=== PATIENT | male | born 2000 | race Caucasian/White ===

== ENCOUNTER 2024-05-17 09:01 | Inpatient (IN) | payer MEDICAID, SELFPAY ==
[2024-05-17] VITALS (20 sets, daily range): BP systolic 89–137; BP diastolic 41–81; PULSE 44–85; RESP 15–28; TEMP 36.6–37.2; O2SAT 96–100; BMI 19.0; BMI 18.8
--- NOTE | 2024-05-17 09:30 | XR_ITS ---
Examination: PA lateral chest 2 views TECHNIQUE: Upright PA lateral chest 2 views Exam date and time: May 17, 2024 at 0935 hours Comparison November 05, 2022 INDICATIONS: History pneumothorax 5%, shortness of breath today FINDINGS: Left apical pneumothorax, estimated 30% No shift of the heart or mediastinum to the right Normal heart size IMPRESSION: Left apical pneumothorax estimated 30%
--- NOTE | 2024-05-17 09:53 | PD.EDSOB ---
ED SOB =RME/HPI General Chief Complaint: Shortness of Breath/Dyspnea Stated Complaint: I think my lung collapsed Time Seen by Provider: 05/17/24 09:20 Source: patient Arrival date/time: 05/17/24 09:01 24-year-old male presents emergency department complaints of left-sided chest pain deep deep inspiration. Patient states that he has had a hemothorax in the past and is scared that today he has the same. Denies chest pain, no cough no fever no rhinorrhea. Mode of arrival: ambulatory Related Data Home Medications ?Medication ?Instructions ?Recorded ?Confirmed No Known Home Medications 11/02/22 11/02/22 Allergies Allergy/AdvReac Type Severity Reaction Status Date / Time No Known Allergies Allergy Verified 05/17/24 09:04 Review of Systems Review of Systems Systems Reviewed: All systems reviewed, normal except as documented Narrative Review of Systems: Gen: No fever, no chills, no weight loss EYES: No discharge, no visual changes, no pain HEENT: No ear pain, no congestion, no sore throat PULM: No shortness of breath, no cough, no congestion CV: No chest pain, no dyspnea on exertion, no palpitations GI: No nausea, no vomiting, no diarrhea, no pain, no constipation : No frequency, no urgency, no dysuria Musc/skel: No joint pain, no back pain Skin: No rash Psyc: No hallucinations, no depression Heme/Lymph: No easy bleeding or bruising tendencies Neuro: No weakness, no headache ED Exam Narrative Physical exam: General: Sittiing in Exam table in no acute distress, answering questions appropriately HENT: normocephalic, atraumatic, EOMI, PERRLA, moist mucous membranes Chest: chest wall is nontender Cardiac: regular rate and rhythm, normal S1 and S2, no murmurs, rubs, or gallops, capillary refill ?2 seconds Pulmonary: clear to auscultation bilaterally, no wheezing, crackles, or rhonchi Abdominal: active bowel sounds, soft, nontender, nondistended Neuro: A&OX3, CN II-XII intact, sensation grossly intact bilaterally in UE and LE. Skin: no rashes, no ecchymosis Ext: no lower extremity edema Course Quality Measures none Orders Category Date Time Status XR chest 2V Stat Exams 05/17/24 09:30 Ordered Ibuprofen Tab [Motrin Tab] Med 05/17/24 09:30 Discontinued 800 mg PO X1 ONE Vital Signs Vital signs: Vital Signs Temperature 98.5 F 05/17/24 09:03 Pulse Rate 78 05/17/24 09:03 Respiratory Rate 19 05/17/24 09:03 Blood Pressure 124/62 05/17/24 09:03 Pulse Oximetry (%) 100 05/17/24 09:03 Oxygen Delivery Method Room Air 05/17/24 09:03 Shortness of Breath / Dyspnea Patient data External records reviewed:: [facility] previous records Clinical information provided by:: patient Social determinants that could affect healthcare access:: none Patient has the following chronic illnesses:: History of hemothorax How is presenting disease/condition affected by chronic disease/condition?: no chronic disease Evaluation data The following diagnostics were reviewed and interpreted by me:: radiology exam(s) Lab and/or radiology exams considered but not ordered:: no Medications / Prescriptions Medication administrations:: Medication Administration History Discontinued Medications Ibuprofen (Ibuprofen Tab 400 Mg Tablet) 800 mg PO X1 ONE Stop: 05/17/24 09:31 all medications administered and effective Consultations Consultation(s) initiated? (list below): No Diagnosis Shortness of Breath Differential Diagnosis: community acquired pneumonia and other ( bronchitis, hemothorax,) Most likely diagnosis given after review of the tests above:: costochondritis Admission Indicated Admission indicated?: not indicated Admission Request Was there a request for admission?: No Disposition Plan Disposition Plan: Discharge Discharge Attestation Discharge Attestation: The patient and all family members were given an opportunity to ask questions and understood the discharge instructions. Discharge instructions specifically effects, indications for sooner follow up or return to the emergency department, and the expected course of current diagnosis. Patient condition: Stable Discharge Plan Prescriptions/Referrals Prescriptions/Med Rec: No Action No Known Home Medications Patient/Caregiver Discharge Instructions Print Language: Hungarian
--- NOTE | 2024-05-17 09:57 | PD.EDRME ---
Rapid Medical Screening Exam [facility] Arrival date/time: 05/17/24 09:01 24-year-old male presents emergency department complaints of left-sided chest pain deep deep inspiration. Patient states that he has had a hemothorax in the past and is scared that today he has the same. Denies chest pain, no cough no fever no rhinorrhea. Chief Complaint: Shortness of Breath/Dyspnea Time Seen by Provider: 05/17/24 09:20 Vital signs: Vital Signs Temperature 98.5 F 05/17/24 09:03 Pulse Rate 78 05/17/24 09:03 Respiratory Rate 19 05/17/24 09:03 Blood Pressure 124/62 05/17/24 09:03 Pulse Oximetry (%) 100 05/17/24 09:03 Oxygen Delivery Method Room Air 05/17/24 09:03
[2024-05-17] MEDS: IBUPROFEN TAB 400 MG TABLET 800 MG PO (10:08)
--- NOTE | 2024-05-17 10:18 | EKG_ITS ---
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2000 Requested By: Mau Wakefield Order Number: [id number] Niesha MD: Mau Wakefield Measurements Intervals [place] Rate: 58 P: 77 WV: 135 QRS: -52 QRSD: 118 T: 72 QT: 395 QTc: 390 Interpretive Statements SINUS BRADYCARDIA POSSIBLE LEFT ATRIAL ENLARGEMENT [-0.1mV P WAVE IN V1/V2] INDETERMINATE AXIS INCOMPLETE RIGHT BUNDLE BRANCH BLOCK [90+ ms QRS DURATION, TERMINAL R IN V1/V2, 40+ ms S IN I/aVL/V4/V5/V6] LEFT ANTERIOR FASCICULAR BLOCK [QRS AXIS <= -45, QR IN I, RS IN II] MODERATE ST DEPRESSION [0.05+ mV ST DEPRESSION] Compared to ECG 11/02/2022 11:40:23 Indeterminate axis now present ST (T wave) deviation still present /store/S0/[id number]/ecg/[id number].pdf
--- NOTE | 2024-05-17 10:36 | XR_ITS ---
Examination: CT-guided percutaneous chest tube placement left hemithorax CT chest without intravenous contrast Date and time of procedure: April 16, 2024 1416 hours INDICATIONS: Shortness of breath this week, 30% left apical pneumothorax on chest x-ray today Informed consent provided. A timeout was completed verifying correct patient, procedure, site and positioning. Technique: Axial 3 mm sections were obtained for localization of the left apical pneumothorax. Appropriate area is marked. The patient's site was prepped and draped in sterile fashion Maximal sterile barrier technique utilized, including hand hygiene Local anesthesia was obtained with 1% lidocaine. Low dose protocols were performed. One or more of the following dose reduction techniques were used; automated exposure control, adjustment of the mA and/or KV according to patient size, use of iterative reconstruction technique. Utilizing CT fluoroscopic guidance successful placement 5 Algerian catheter in the left apical pneumothorax 0.35 wire guide is introduced through the catheter followed by dilators and 8 Algerian chest tube in proper position under fluoroscopic guidance Patient appears in stable condition during this procedure. At completion of the procedure, the patient is in satisfactory condition. Estimated blood loss 2 cc Impression: Successful CT-guided percutaneous placement chest tube left hemithorax
[2024-05-17 10:43] LABS: Basophils % (Auto) 0 % (0-2.5); Eosinophils % (Auto) 0 % (0-10); Hematocrit 46.2 % (41.0-53.0); Hemoglobin 16.3 g/dL (13.5-16.0); Immature Granulocytes % (Auto) 0 % (0-0); Immature Granulocytes Auto 0.03 Thou/mm3 (0.00-0.00); Lymphocytes # (Auto) 0.6 Thou/mm3 (1.0-4.8); Lymphocytes % (Auto) 5 % (10-50); Mean Corpuscular HGB Conc 35.3 g/dl (31.0-37.0); Mean Corpuscular Hemoglobin 30.4 pg (25.0-35.0); Mean Corpuscular Volume 86 fL (80-100); Monocytes # (Auto) 0.6 Thou/mm3 (0.0-0.8); Monocytes % (Auto) 5 % (0-12); Neutrophils # (Auto) 11.1 Thou/mm3 (1.8-7.7); Neutrophils % (Auto) 90 % (37-80); Nucleated Red Blood Cell % 0 /100 WBC (0); Platelet Count 253 Thou/mm3 (140-440); RDW Standard Deviation 38.6 fL (35.1-43.9); Red Blood Count 5.36 Miln/mm3 (4.50-5.90); White Blood Count 12.4 Thou/mm3 (3.8-10.6)
[2024-05-17 10:57] LABS: INR 1.1 (0.9-1.3); Prothrombin Time 12.2 Seconds (9.0-12.2)
[2024-05-17 11:01] LABS: Alanine Aminotransferase 13 U/L (10-49); Albumin, Serum 5.6 gm/dL (3.5-5.0); Albumin/Globulin Ratio 2.2 (1.2-2.2); Alkaline Phosphatase 64 U/L (46-116); Anion Gap 10 (7-16); Aspartate Amino Transferase 20 U/L (0-34); BUN/Creatinine Ratio 19 Ratio (12-20); Bilirubin,Total 1.7 mg/dL (0.3-1.2); Blood Urea Nitrogen 19 mg/dL (9-23); Calcium 10.7 mg/dL (8.3-10.6); Calcium (Corrected) 10.7 mg/dL (8.5-10.1); Carbon Dioxide 25.2 mMol/L (20.0-31.0); Chloride 103 mMol/L (98-107); Estimated Creatinine Clearance 100.5 mL/min (>60); Globulin 2.6 gm/dL (2.3-3.5); Glucose 94 mg/dL (74-106); Osmolality,Calculated 277 (275-295); Sodium 138 mMol/L (136-145); Total Protein 8.2 gm/dL (5.7-8.2); eGFR > 60 See Note
--- NOTE | 2024-05-17 13:55 | PC.NURSE ---
pt taken to IR.
--- NOTE | 2024-05-17 14:23 | EDNOTE_ITS ---
ED SOB =RME/HPI General Chief Complaint: Shortness of Breath/Dyspnea Stated Complaint: I think my lung collapsed Time Seen by Provider: 05/17/24 09:20 Arrival date/time: 05/17/24 09:01 RME / HPI RME / HPI Narrative: 05/17/24 09:01 24-year-old male presents emergency department complaints of left-sided chest pain deep deep inspiration. Patient states that he has had a hemothorax in the past and is scared that today he has the same. Denies chest pain, no cough no fever no rhinorrhea. DR. SHALOM SPENCER ED EVALUATION 24 year old male with history of spontaneous pneumothorax in 2019 and 2022 presents to the ED for I think my lung collapsed today. Reports left sided chest pain worse with deep inspiration and feeling short of breath. Denies fevers, chills, cough, abdominal pain, n/v, or urinary symptoms Social hx: +Marijuana Related Data Home Medications ?Medication ?Instructions ?Recorded ?Confirmed No Known Home Medications 11/02/22 11/02/22 Allergies Allergy/AdvReac Type Severity Reaction Status Date / Time No Known Allergies Allergy Verified 05/17/24 09:04 Review of Systems Review of Systems Narrative Review of Systems: GEN: No fever, no chills, no weight loss EYES: No discharge, no visual changes, no pain HEENT: No ear pain, no congestion, no sore throat PULM: + shortness of breath, no cough CV: No chest pain, no palpitations GI: No nausea, no vomiting, no diarrhea, no pain, no constipation : No frequency, no urgency and no dysuria MUSC/SKEL No joint pain, no back pain SKIN: No rash PSYCH: No hallucinations, no depression HEME/LYMPH: No easy bleeding or bruising tendencies NEURO: No weakness, no headache Past Medical History Past Medical History NEUROLOGIC: Negative Neurological Disorders CARDIAC: Negative Cardiac Disorders GASTROINTESTINAL: Negative Gastrointestinal Disorders GENITOURINARY: Negative Genitourinary Disorders or Renal Disease MUSCULOSKELETAL: Negative Musculoskeletal Disorders Family History FAMILY HISTORY: Negative Family Cardiac Disorders Surgical History SURGICAL: Negative Cardiac Surgery, Endocrine Surgery, Abdominal Surgery, Nephrectomy, Joint Replacement or Neurologic Surgery Social History SMOKING STATUS: Current some day smoker SUBSTANCE USE: marijuana ED Exam Narrative Physical exam: GENERAL APPEARANCE: Well hydrated, well nourished, in no acute distress. VITALS: All vitals were reviewed and the pulse ox is 97% on room air which is normal according to my interpretation. HEENT: Normocephalic, atramatic, EOMI, EACs are patent. There is no bulge or retraction. Throat without erythema or exudate. Moist oromucosa. No jaundice NECK: Supple, no JVD or bruits. CARDIOVASCULAR: Heart regular without S3-S4 or murmur. No rubs or gallops. LUNGS/CHEST: Clear to auscultation bilaterally. No rales, rhonchi, or wheezing. Normal inspection. ABDOMEN: Soft, nontender, with normal bowel sounds. No pulsatile masses. No rebound, rigidity, or guarding. No incarcerated hernia. Normal inspection and palpation. EXTREMITIES: Normal inspection and palpation. No edema, clubbing, or cyanosis. Intact CSM SKIN: Warm and dry without rashes. Normal inspection. MUSCULOSKELETAL: Normal inspection. No gross deformity, full ROM all extremities NEURO: Alert and oriented x3. Cranial nerves II through XII grossly intact. There are no other motor or sensory deficits noted. PSYCHIATRIC: Normal mood and affect. No psychosis. Course Course Course Narrative: chest xray ordered to help determine etiology of chest pain and shortness of breath. Quality Measures none Orders Category Date Time Status [employer] Systems Adminstrator Q4H START 00 Care 05/17/24 10:18 Active EKG (ED ONLY) *Do not use* NOW Care 05/17/24 10:20 Completed Saline [Insert IV] NOW Care 05/17/24 10:[address] chest tube placement Stat Exams 05/17/24 10:36 Completed EKG (ED Only) Stat Exams 05/17/24 10:18 Draft XR chest 2V Stat Exams 05/17/24 09:30 Completed CBC Stat Lab 05/17/24 10:35 Completed CMP [Comprehensive Metabolic Panel] Stat Lab 05/17/24 10:35 Completed PT [Prothrombin Time with INR] Stat Lab 05/17/24 10:35 Completed PTT [Partial Thromboplastin Time] Stat Lab 05/17/24 10:35 Completed Etomidate Inj [Amidate Inj] Med 05/17/24 10:18 Discontinued 10 mg IVP X1 ONE Ibuprofen Tab [Motrin Tab] Med 05/17/24 09:30 Discontinued 800 mg PO X1 ONE Lidocaine 1% Pf 30 ml [Xylocaine 1% Pf 30 ml] Med 05/17/24 13:52 Discontinued 30 ml .ROUTE .STK-MED ONE Lidocaine 1% Pf 30 ml [Xylocaine 1% Pf 30 ml] Med 05/17/24 14:42 Discontinued 30 ml .ROUTE .STK-MED ONE Lidocaine 1% Pf 30 ml [Xylocaine 1% Pf 30 ml] Med 05/17/24 14:16 Discontinued 7 ml INFL X1 ONE Lidocaine 1% W/Epi 1:100K 20Ml [Xylocaine 1% w/Epi 1: Med 05/17/24 10:18 Discontinued 100K 20 ml] 20 ml INFL X1 ONE Midazolam Inj [Versed Inj] Med 05/17/24 10:18 Discontinued 6 mg IV X1 ONE NALOXONE INJ (Vial) [Narcan Inj (Vial)] Med 05/17/24 13:53 Discontinued 0.4 mg .ROUTE .STK-MED ONE Sodium Chloride 0.9% 500 ml [Ns] 500 ml Med 05/17/24 14:55 Discontinued IV 999 mls/hr fentaNYL INJ [Sublimaze Inj] Med 05/17/24 14:16 Discontinued 125 mcg IVP X1 ONE fentaNYL INJ [Sublimaze Inj] Med 05/17/24 13:52 Discontinued 200 mcg .ROUTE .STK-MED ONE fentaNYL INJ [Sublimaze Inj] Med 05/17/24 10:18 Discontinued 60 mcg IVP X1 STA Vital Signs Vital signs: Vital Signs Temperature 98.5 F 05/17/24 09:03 Pulse Rate 78 05/17/24 09:03 Respiratory Rate 19 05/17/24 09:03 Blood Pressure 124/62 05/17/24 09:03 Pulse Oximetry (%) 100 05/17/24 09:03 Oxygen Delivery Method Room Air 05/17/24 09:03 Shortness of Breath / Dyspnea MDM Narrative MDM Narrative:: Agueda Villanueva am scribing for and in the presence of Dr. Wakefield. Portable chest x-ray interpreted by me: Evidence of 3% apical pneumothorax seen on the left. On the right is clear and normal. Heart is normal. With normal mediastinum. Normal bones. No fracture ribs. No foreign body. The patient confirmed that he did not have any trauma or injury. He has had spontaneous pneumothorax at least twice before. 4 PM, the patient has come back from the interventional radiology office for CT- guided chest tube inserted in the left chest. O2 saturation is 100% in room air. Patient is alert awake oriented x 4 GCS of 15. Blood pressure is perfectly normal. He is happy smiling and talking. No respiratory distress. I spoke to and discussed with , resident of , hospitalist on- call. He agreed to admit the patient for further evaluation and treatment. Thank you Critical care time is approximately 35 minutes excluding any procedure. The high probability of sudden, clinically significant deterioration in the patient?s condition required the highest level of my preparedness to intervene urgently. The services I provided to this patient were to treat and/or prevent clinically significant deterioration. Services included the following: chart data review, reviewing nursing notes and/or old charts, documentation time, executive consultant collaboration regarding findings and treatment options, medication orders and management, direct patient care, vital sign assessments and ordering, interpreting and reviewing diagnostic studies and lab tests. Aggregate critical care time includes only time during which I was engaged in work directly related to the patient?s care, as described above, whether at bedside or elsewhere in the Emergency Department. It did not include time spent performing other reported procedures or the services of residents, students, naty ses or physician assistants. Patient data External records reviewed:: [facility] previous records (I reviewed previous admission for pneumothorax in 2018 and 2022 ) Clinical information provided by:: patient Social determinants that could affect healthcare access:: substance use (Marijuana ) Patient has the following chronic illnesses:: spontaneous pneumothorax in 2018 and 2022 How is presenting disease/condition affected by chronic disease/condition?: exacerbated by Evaluation data The following diagnostics were reviewed and interpreted by me:: lab results, radiology exam(s) and EKG tracing(s) Lab and/or radiology exams considered but not ordered:: None Interpretation Summary: Ordering Physician: Hoa Johnston Date of Service: 05/17/24 Procedure(s): XR chest 2V Accession Number(s): [id number] cc: George Thompson MD; Hoa Johnston~ Examination: PA lateral chest 2 views TECHNIQUE: Upright PA lateral chest 2 views Exam date and time: May 17, 2024 at 0935 hours Comparison November 05, 2022 INDICATIONS: History pneumothorax 5%, shortness of breath today FINDINGS: Left apical pneumothorax, estimated 30% No shift of the heart or mediastinum to the right Normal heart size IMPRESSION: Left apical pneumothorax estimated 30% Dictated By: George Thompson MD Signed By: <Electronically signed by George Thompson MD in OV> 05/17/24 0952 Ordering Physician: Mau Wakefield MD Date of Service: 05/17/24 Procedure(s): CT chest tube placement Accession Number(s): [id number] cc: George Thompson MD; NO PRIMARY/FAMILY,PHYSICIAN; Mau Wakefield MD~ Examination: CT-guided percutaneous chest tube placement left hemithorax CT chest without intravenous contrast Date and time of procedure: April 16, 2024 1416 hours INDICATIONS: Shortness of breath this week, 30% left apical pneumothorax on chest x-ray today Informed consent provided. A timeout was completed verifying correct patient, procedure, site and positioning. Technique: Axial 3 mm sections were obtained for localization of the left apical pneumothorax. Appropriate area is marked. The patient's site was prepped and draped in sterile fashion Maximal sterile barrier technique utilized, including hand hygiene Local anesthesia was obtained with 1% lidocaine. Low dose protocols were performed. One or more of the following dose reduction techniques were used; automated exposure control, adjustment of the mA and/or KV according to patient size, use of iterative reconstruction technique. Utilizing CT fluoroscopic guidance successful placement 5 Belarusian catheter in the left apical pneumothorax 0.35 wire guide is introduced through the catheter followed by dilators and 8 Belarusian chest tube in proper position under fluoroscopic guidance Patient appears in stable condition during this procedure. At completion of the procedure, the patient is in satisfactory condition. Estimated blood loss 2 cc Impression: Successful CT-guided percutaneous placement chest tube left hemithorax Dictated By: George Thompson MD Signed By: <Electronically signed by George Thompson MD in OV> 05/17/24 1548 Medications / Prescriptions Medications or Prescriptions considered but not ordered:: None Medication administrations:: Medication Administration History Discontinued Medications Etomidate (Etomidate Inj 2 Mg/Ml Vial 10 Ml) 10 mg IVP X1 ONE Stop: 05/17/24 10:19 Fentanyl Citrate (Fentanyl Cit Inj 50 Mcg/Ml Amp 2ml) 60 mcg IVP X1 STA Stop: 05/17/24 10:19 Fentanyl Citrate (Fentanyl Cit Inj 50 Mcg/Ml Amp 2ml) Confirm Administered Dose 200 mcg .ROUTE .STK-MED ONE Stop: 05/17/24 13:53 Last Admin: 05/17/24 15:29 Dose: Not Given Documented By: CU Non-Admin Reason: Override Medication Fentanyl Citrate (Fentanyl Cit Inj 50 Mcg/Ml Amp 2ml) 125 mcg IVP X1 ONE Stop: 05/17/24 14:17 Last Admin: 05/17/24 14:43 Dose: 125 mcg Documented By: BROWN Sodium Chloride (Ns) 500 mls @ 999 mls/hr IV .Q31M ONE Stop: 05/17/24 15:25 Last Infusion: 05/17/24 15:08 Dose: Infused Documented By: Admin: 05/17/24 14:55 Dose: 999 mls/hr Documented By: BROWN Ibuprofen (Ibuprofen Tab 400 Mg Tablet) 800 mg PO X1 ONE Stop: 05/17/24 09:31 Last Admin: 05/17/24 10:08 Dose: 800 mg Documented By: KARLEY Lidocaine HCl (Lidocaine Inj Pf 1% 30 Ml Vial) Confirm Administered Dose 30 ml .ROUTE .STK-MED ONE Stop: 05/17/24 13:53 Last Admin: 05/17/24 15:29 Dose: Not Given Documented By: CU Non-Admin Reason: Override Medication Lidocaine HCl (Lidocaine Inj Pf 1% 30 Ml Vial) Confirm Administered Dose 30 ml .ROUTE .STK-MED ONE Stop: 05/17/24 14:43 Last Admin: 05/17/24 15:32 Dose: Not Given Documented By: CU Non-Admin Reason: Override Medication Lidocaine HCl (Lidocaine Inj Pf 1% 30 Ml Vial) 7 ml INFL X1 ONE Stop: 05/17/24 14:17 Last Admin: 05/17/24 14:51 Dose: 7 ml Documented By: BROWN Comments: to sterile field administered by dr pratt Lidocaine/Epinephrine (Lidocaine 1% W/Epi 1:100k 20 Ml Vial) 20 ml INFL X1 ONE Stop: 05/17/24 10:19 Midazolam HCl (Midazolam Inj 1 Mg/Ml Vial 2 Ml) 6 mg IV X1 ONE Stop: 05/17/24 10:19 Naloxone HCl (Naloxone Inj 0.4 Mg/Ml Vial) Confirm Administered Dose 0.4 mg .ROUTE .STK-MED ONE Stop: 05/17/24 13:54 Last Admin: 05/17/24 15:29 Dose: Not Given Documented By: CU Non-Admin Reason: Override Medication See above Consultations Consultation(s) initiated? (list below): Yes Consultation #1 (Physician, Specialty, Details): I spoke with IR Dr. Thompson Diagnosis Shortness of Breath Differential Diagnosis: community acquired pneumonia and other (Pneumothorax, viral illness) Most likely diagnosis given after review of the tests above:: Left pneumothorax 30% Chest tube placement Admission Indicated Admission indicated?: indicated Admission Request Was there a request for admission?: Yes Admission Attestation Admission request attestation: Discussed case with [] from Hospitalist service regarding admission. Discussed patients ED course, exam findings, labs, and radiology results. The Hospitalist [agrees,declines] to accept the patient for admission. Disposition Plan Disposition Plan: Admit Critical Care Time Critical Care Time Critical Care Time: Yes Total Critical Care Time (min.): 35 Attestation: The high probability of sudden, clinically significant deterioration in the patient's condition required the highest level of my preparedness to intervene urgently. The services I provided to this patient were to treat and/or prevent clinically significant deterioration. Services included the following: chart data review, reviewing nursing notes and/or old charts, documentation time, executive consultant collaboration regarding findings and treatment options, medication orders and management, direct patient care, vital sign assessments and ordering, interpreting and reviewing diagnostic studies and lab tests. Aggregate critical care time includes only time during which I was engaged in work directly related to the patient's care, as described above, whether at bedside or elsewhere in the Emergency Department. It did not include time spent performing other reported procedures or the services of residents, students, nurses or physician assistants. Discharge Plan Plan Patient Disposition: Admit Acute Care w/in Hospital Disposition Comment: Stable for admit Prescriptions/Referrals Prescriptions/Med Rec: No Action No Known Home Medications Referrals: No Primary/Family,Physician [Primary Care Provider] - In 1 week Problem List Clinical Impression: Pneumothorax on left Patient/Caregiver Discharge Instructions Print Language: Niuean Stand Alone Forms: [employer] Patient Portal Info Letter
[2024-05-17] MEDS: fentaNYL CIT INJ 50 mCg/ML AMP 2ML 125 MCG IVP (14:43)
[2024-05-17] MEDS: LIDOCAINE INJ PF 1% 30 ML VIAL 7 ML INFL (14:51)
[2024-05-17] MEDS: SODIUM CHLORIDE 0.9% 500 ML 500 ML 999 ML IV (14:55)
--- NOTE | 2024-05-17 15:07 | PC.NURSE ---
Received report from IR. Chest tube placed on pt and pt had a vaso vagal response but is currently 109/75, 56, 23, on 3 L NC , 98%
--- NOTE | 2024-05-17 16:21 | PC.NURSE ---
1508 patient had chest tube insertion left hemithorax, report given to Jing MCELROY, patient transferred back to ER room 3, pleur vac set up in room to low/medium suction
--- NOTE | 2024-05-17 16:42 | EKG_ITS ---
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
--- NOTE | 2024-05-17 16:43 | ESHP_ITS ---
<Statement entered by Jackelin Hoyt MD - 05/23/24 17:31> Attending attestation: I reviewed above note and agree with findings and plans. I have also personally examined the patient with medicine team and went over assessment and plan with medical team including supply chain intern and resident physician. Documentation for date of: 05/17/24 HPI History of Present Illness Chief complaint: Chest pain History of present illness: Patient is 24 years old male with past medical history significant of marijuana use disorder presented to the ED complaining of chest pain started yesterday around noon. Patient reported that he was resting on the couch when he suddenly developed severe chest pain over the left chest. Patient has history of prior spontaneous pneumothorax in 2022 and 2018 and reported that symptoms were similar. Today his condition has failed to improve and he came to the emergency room. He has never been diagnosed with any congenital genetic conditions. He reported that his father is 6.8 feet tall and his half brother from father side has deformed chest since . He denies any fever, chills, palpitations or diaphoresis. Patient denied any recent physical activity and does not do any sports. On admission his blood pressure 124/62, pulse 78, respirations 19, temperature 98.5 ?F, oxygen saturation 100% on room air. Labs showed WBCs 12.4, hemoglobin 16.3, corrected calcium 10.7, total bilirubin 1.7, albumin 5.6. Chest x-ray showed left apical pneumothorax approximately 70%. EKG showed sinus bradycardia with nonspecific ST segment changes. Chest tube was placed. Patient was admitted for further management. PMH: Marijuana use disorder, prior history of spontaneous pneumothorax. PSH: Chest tube placement. SH: Smokes marijuana daily, denies smoking tobacco or using illicit drugs. Denies drinking alcohol. FH: All male siblings from father side are tall, his half brother from father side has deformed chest. Allergies: NKA. Medications: none. Review of Systems Review of Systems Narrative Review of Systems: General: Denies weight loss, fever and chills. HEENT: Denies changes in vision and hearing. Resp: Denies SOB, cough and wheezing. CVS: + chest pain. Denies palpitations. GI: Denies abdominal pain, nausea, vomiting and diarrhea. : Denies dysuria and urinary frequency. MSK: Denies myalgia and joint pain. Denies rash and pruritus. Neuro: Denies headache and syncope. Psych: Denies recent changes in mood. Denies anxiety and depression. Exam Vital Signs Temp Pulse Resp BP Pulse Ox O2 Del Method O2 Flow Rate 98.5 F 60 20 136/73 H 98 Room Air 3 05/17/24 16:32 05/17/24 16:32 05/17/24 16:32 05/17/24 16:32 05/17/24 16:32 05/17/24 16:32 05/17/24 15:05 Narrative Exam Gen: Well-developed and well-nourished thin male. HEENT: NCAT, PERRLA, EOMI, MMM, anicteric conjunctivae. CVS: normal S1 and S2. RRR. No M/R/G. Resp: decreased breath sound over left apex. No rhonchi, rales, crackles or wheezing. Abd: soft, non-tender, non-distended. BS+ in all 4 quadrants. MSK: Good ROM in BUE & BLE. No edema or rash. Neuro: CN II-XII grossly intact. Strength 5/5 in BUE & BLE. Alert and oriented x3. Psych: appropriate mood and affect. Results: Labs 05/17/24 10:35 05/17/24 10:35 Labs: Short CBC 05/17/24 Range/Units 10:35 WBC 12.4 H (3.8-10.6) Thou/mm3 Hgb 16.3 H (13.5-16.0) g/dL Hct 46.2 (41.0-53.0) % Plt Count 253 (140-440) Thou/mm3 [facility] 05/17/24 10:35 Sodium 138 Potassium 4.0 Chloride 103 Carbon Dioxide 25.2 BUN 19 Creatinine 1.0 Glucose 94 Calcium 10.7 H Liver Function 05/17/24 Range/Units 10:35 Total Bilirubin 1.7 H (0.3-1.2) mg/dL AST 20 (0-34) U/L ALT 13 (10-49) U/L Alkaline Phosphatase 64 (46-116) U/L Albumin 5.6 H (3.5-5.0) gm/dL Quality Measures Quality Measures none Medications Home Medications and Allergies Home Medications ?Medication ?Instructions ?Recorded ?Confirmed ?Type No Known Home Medications 11/02/22 11/02/22 History Allergies Allergy/AdvReac Type Severity Reaction Status Date / Time No Known Allergies Allergy Verified 05/17/24 09:04 Visit Medications Acetaminophen (Acetaminophen 325 Mg Tablet) 650 mg PO Q6H PRN PRN Reason: PAIN SCALE 1-3 (mild Stop: 06/16/24 16:39 Hydrocodone Bitart/Acetaminophen (Hydrocodone/Apap 5/325 Tablet) 1 tab PO Q4HR PRN PRN Reason: PAIN SCALE 4-6 (Moderate Stop: 05/22/24 16:39 Discontinued Medications Etomidate (Etomidate Inj 2 Mg/Ml Vial 10 Ml) 10 mg IVP X1 ONE Stop: 05/17/24 10:19 Last Admin: 05/17/24 16:04 Dose: Not Given Fentanyl Citrate (Fentanyl Cit Inj 50 Mcg/Ml Amp 2ml) 60 mcg IVP X1 STA Stop: 05/17/24 10:19 Last Admin: 05/17/24 16:04 Dose: Not Given Fentanyl Citrate (Fentanyl Cit Inj 50 Mcg/Ml Amp 2ml) 125 mcg IVP X1 ONE Stop: 05/17/24 14:17 Last Admin: 05/17/24 14:43 Dose: 125 mcg Sodium Chloride (Ns) 500 mls @ 999 mls/hr IV .Q31M ONE Stop: 05/17/24 15:25 Last Infusion: 05/17/24 15:08 Dose: Infused Ibuprofen (Ibuprofen Tab 400 Mg Tablet) 800 mg PO X1 ONE Stop: 05/17/24 09:31 Last Admin: 05/17/24 10:08 Dose: 800 mg Lidocaine HCl (Lidocaine Inj Pf 1% 30 Ml Vial) 7 ml INFL X1 ONE Stop: 05/17/24 14:17 Last Admin: 05/17/24 14:51 Dose: 7 ml Lidocaine/Epinephrine (Lidocaine 1% W/Epi 1:100k 20 Ml Vial) 20 ml INFL X1 ONE Stop: 05/17/24 10:19 Last Admin: 05/17/24 16:04 Dose: Not Given Midazolam HCl (Midazolam Inj 1 Mg/Ml Vial 2 Ml) 6 mg IV X1 ONE Stop: 05/17/24 10:19 Last Admin: 05/17/24 16:05 Dose: Not Given Assessment & Plan Plan Patient is 24 years old male with past medical history significant of marijuana use disorder presented to the ED complaining of chest pain started yesterday around noon. Patient reported that he was resting on the couch when he suddenly developed severe chest pain over the left chest. Today his condition has failed to improve and he came to the emergency room. Chest x-ray showed left apical pneumothorax approximately 70%. Chest tube was placed. Patient was admitted for further management. #Spontaneous pneumothorax, recurrent. -Patient has history of prior spontaneous pneumothorax in 2022 and 2018. -Chest x-ray showed left apical pneumothorax approximately 70%. Chest tube was placed. Plan: -Chest x-ray scheduled for 7 AM tomorrow. -Will continue monitoring chest tube and output. -Pain control with acetaminophen and [place]. #Hemoconcentration. #Leukocytosis. #Hypercalcemia. #Hyperbilirubinemia. -Labs showed WBCs 12.4, hemoglobin 16.3, corrected calcium 10.7, total bilirubin 1.7, albumin 5.6. His bilirubin was previously noted to be elevated. -Patient denies any fever, chills, abdominal pain, nausea or vomiting. He reported decreased oral intake since yesterday. Possibly hemoconcentration from dehydration. Plan: -Started on NS at 70 cc/h. -Follow-up labs in the morning. FEN: regular. DVT prophylaxis: none. GI prophylaxis: none. Dispo: medsurg. CODE STATUS: full code. Plan of care discussed with attending Dr. Hoyt. Dwight Hughes MD, PGY 2. Disclaimer: This note was dictated by speech recognition. Minor errors in special education curriculum specialist may be present due to voice recognition software.
--- NOTE | 2024-05-17 16:45 | XR_ITS ---
Examination: AP chest single view Technique one AP portable upright chest single view Exam date and time: May 17, 2024 0454 hours INDICATIONS: Left apical pneumothorax, post chest tube placement today FINDINGS: Interval insertion left chest tube with decrease left pneumothorax, currently estimated 10% Normal heart size IMPRESSION: Interval insertion left chest tube with decrease in left pneumothorax
--- NOTE | 2024-05-17 16:46 | PC.NURSE ---
consulted Dr maxwell regarding chest xray order post chest tube insertion, new order placed for stat chest xray at this time. [facility] ER nurse made aware.
[2024-05-17] MEDS: SODIUM CHLORIDE 0.9% 1000 ML 1,000 ML 70 ML IV (17:08)
--- NOTE | 2024-05-17 19:18 | PC.NURSE ---
Assumed care of pt. Pt is A&O x4, GCS 15, displaying no signs of distress at this time. Pt endorsing pain level 6/10 but declining pain meds at this time. Vitals updated. Bed locked in lowest position, call light within reach.
[2024-05-17] MEDS: HYDROcodone/APAP 5/325 TABLET 1 TAB PO (20:08)
[2024-05-18] VITALS (8 sets, daily range): BP systolic 112–134; BP diastolic 70–79; PULSE 44–53; RESP 15–100; TEMP 36.4–36.8; O2SAT 96–100
[2024-05-18 06:31] LABS: Basophils % (Auto) 0 % (0-2.5); Eosinophils % (Auto) 0 % (0-10); Hematocrit 40.6 % (41.0-53.0); Hemoglobin 14.3 g/dL (13.5-16.0); Immature Granulocytes % (Auto) 0 % (0-0); Immature Granulocytes Auto 0.01 Thou/mm3 (0.00-0.00); Lymphocytes # (Auto) 1.1 Thou/mm3 (1.0-4.8); Lymphocytes % (Auto) 17 % (10-50); Mean Corpuscular HGB Conc 35.2 g/dl (31.0-37.0); Mean Corpuscular Hemoglobin 30.7 pg (25.0-35.0); Mean Corpuscular Volume 87 fL (80-100); Monocytes # (Auto) 0.7 Thou/mm3 (0.0-0.8); Monocytes % (Auto) 10 % (0-12); Neutrophils # (Auto) 4.8 Thou/mm3 (1.8-7.7); Neutrophils % (Auto) 73 % (37-80); Nucleated Red Blood Cell % 0 /100 WBC (0); Platelet Count 199 Thou/mm3 (140-440); RDW Standard Deviation 39.4 fL (35.1-43.9); Red Blood Count 4.66 Miln/mm3 (4.50-5.90); White Blood Count 6.7 Thou/mm3 (3.8-10.6)
--- NOTE | 2024-05-18 07:00 | XR_ITS ---
Examination: AP chest single view Technique one AP portable upright chest single view Exam date and time: May 18, 2024 at 0725 hrs. Indications: History left pneumothorax yesterday post chest tube placement Findings: Left chest tube satisfactory position Small left apical pneumothorax compared to the original chest film May 17, 2024 0935 hrs., Left apical pneumothorax estimated 10% Normal heart size Impression: Left chest tube satisfactory position Left apical pneumothorax 10%, it the Pleur-evac suction is low medium suggest changing the suction to medium
[2024-05-18 07:01] LABS: Anion Gap 3 (7-16); BUN/Creatinine Ratio 14 Ratio (12-20); Blood Urea Nitrogen 13 mg/dL (9-23); Calcium 9.5 mg/dL (8.3-10.6); Carbon Dioxide 26.7 mMol/L (20.0-31.0); Chloride 107 mMol/L (98-107); Creatinine (Component) 0.9 mg/dL (0.6-1.3); Estimated Creatinine Clearance 110.9 mL/min (>60); Glucose 86 mg/dL (74-106); Osmolality,Calculated 272 (275-295); Potassium 3.8 mMol/L (3.4-5.1); Sodium 137 mMol/L (136-145); eGFR > 60 See Note
[2024-05-18] MEDS: HYDROcodone/APAP 5/325 TABLET 1 TAB PO ×3 (11:27→21:24)
--- NOTE | 2024-05-18 11:40 | PC.SS ---
Ge Muro is a 24 Year old male admitted for chest pain. SS met with patient at bedside to discuss discharge plan. Patient reports he lives at home with his fiance. Patient reports his surrogate decision maker is his mother, Jamarcus Cain [phone]. Patient is able to complete all ADL's independently. Patient does not have a PCP. Pharmacy of choice is [facility] [place]. When patient is medically cleared he will return home. Family will provide transportation. Next of Kin: mother, Jamarcus Cain Discharge plan: home
--- NOTE | 2024-05-18 13:21 | PD.SURCONS ---
HPI Consult details Consult date: 05/18/24 Reason for consultation narrative: Chest tube management History of present illness: 24-year-old male presenting with spontaneous left pneumothorax. He underwent placement of chest tube with improvement of his pneumothorax. I was asked to assist in management of chest tube. Patient has had 2 prior episodes of spontaneous pneumothorax, both times were managed with chest tube placement. He denies history of coughing, sneezing, chest pain, hemoptysis or hematemesis. Review of Systems Constitutional Constitutional: Denies chills and Denies fever(s) Cardiovascular Cardiovascular: Denies chest pain Respiratory Respiratory: Denies cough Gastrointestinal Gastrointestinal: Denies abdominal pain Hematologic/Lymphatic Hematologic/Lymphatic: Denies easy bleeding and Denies easy bruising Past Medical History Surgical History OTHER SURGICAL HX: No surgeries in the past Social History SMOKING STATUS: Never smoker SUBSTANCE USE: marijuana ALCOHOL: Current Meds Home Medications and Allergies Home Medications ?Medication ?Instructions ?Recorded ?Confirmed ?Type No Known Home Medications 11/02/22 05/17/24 History Allergies Allergy/AdvReac Type Severity Reaction Status Date / Time No Known Allergies Allergy Verified 05/17/24 09:04 Exam Vital Signs Temp Pulse Resp BP Pulse Ox O2 Del Method O2 Flow Rate 98.2 F 51 L 17 122/77 99 Room Air 3 05/18/24 12:00 05/18/24 12:00 05/18/24 12:00 05/18/24 12:00 05/18/24 12:00 05/18/24 12:00 05/18/24 04:00 Constitutional Constitutional: no acute distress Routine Chest/Breast/Axilla Exam Comments: Left chest tube in place and intact. He has minimal air leak Assessment & Plan Problem List (1) Pneumothorax on left: Status: Acute Plan Keep chest tube to suction. Repeat daily morning x-rays
--- NOTE | 2024-05-18 16:18 | PC.NURSE ---
PER PT MD IN AT 1400 TO ADJUST SUCTION TO CHEST TUBE. SUCTION IS SET AT LOW 50 mmHg. NO DISTRESS NOTES. MOTHER AT BEDSIDE.
--- NOTE | 2024-05-18 16:26 | ESPR_ITS ---
<Statement entered by Jackelin Hoyt MD - 05/23/24 17:32> Attending attestation: I reviewed above note and agree with findings and plans. I have also personally examined the patient with medicine team and went over assessment and plan with medical team including manager internal and resident physician. Documentation for date of: 05/18/24 Subjective Subjective Interval history: Overnight events, lab/imaging results, and notes reviewed. Patient examined bedside, reports feeling well without any complaints. CXR from this morning reveals Left apical pneumothorax now at 10% from 30% yesterday. Will consult general surgeon Dr. Fernandez for chest tube management, we appreciate recommendations. Exam Vital Signs Temp Pulse Resp BP Pulse Ox O2 Del Method O2 Flow Rate 98.2 F 51 L 17 122/77 99 Room Air 3 05/18/24 12:00 05/18/24 12:00 05/18/24 12:00 05/18/24 12:00 05/18/24 12:00 05/18/24 12:00 05/18/24 04:00 Narrative Exam General: AOx3, cooperative, in no acute distress HEENT: Atraumatic/normocephalic, GIAN, neck supple without masses Heart: RRR, S1 and S2 without clicks or murmurs Lungs: Clear on auscultation bilaterally, no difficulty breathing, chest tube in place Abdomen: Soft, nontender. Skin: Intact, no cyanosis or edema noted. Peripheral pulses palpable Neuro: No focal neurological deficits noted Objective Labs 05/18/24 05:35 05/18/24 05:35 Labs: Laboratory Results - last 24 hr 05/18/24 05:35 WBC 6.7 D RBC 4.66 Hgb 14.3 D Hct 40.6 L MCV 87 MCH 30.7 MCHC 35.2 RDW Std Deviation 39.4 Plt Count 199 D Neut % (Auto) 73 Lymph % (Auto) 17 [place] % (Auto) 10 Eos % (Auto) 0 Baso % (Auto) 0 Neut # (Auto) 4.8 Lymph # (Auto) 1.1 [place] # (Auto) 0.7 Eos # (Auto) 0.0 Baso # (Auto) 0.0 Immature Gran # (Auto) 0.01 H Absolute Nucleated RBC 0.00 Immature Gran % 0 Nucleated RBC % 0 Sodium 137 Potassium 3.8 Chloride 107 Carbon Dioxide 26.7 Anion Gap 3 L BUN 13 Creatinine 0.9 Estim Creat Clear Calc 110.9 eGFR > 60 BUN/Creatinine Ratio 14 Glucose 86 Calculated Osmolality 272 L Calcium 9.5 Quality Measures Quality Measures none Assessment & Plan Assessment Current Active Medications: Generic Name Dose Route Start Last Admin Trade Name Mario PRN Reason Stop Dose Admin Acetaminophen 650 mg 05/17/24 16:40 Acetaminophen 325 Mg Tablet PO 06/16/24 16:39 Q6H PRN PAIN SCALE 1-3 (mild Hydrocodone Bitart/Acetaminophen 1 tab 05/17/24 16:40 05/18/24 16:16 Hydrocodone/Apap 5/325 Tablet PO 05/22/24 16:39 1 tab Q4HR PRN Administration PAIN SCALE 4-6 (Moderate Plan Patient is 24 years old male with past medical history significant of marijuana use disorder presented to the ED complaining of chest pain started yesterday around noon. Patient reported that he was resting on the couch when he suddenly developed severe chest pain over the left chest. Today his condition has failed to improve and he came to the emergency room. Chest x-ray showed left apical pneumothorax approximately 70%. Chest tube was placed. Patient was admitted for further management. #Spontaneous pneumothorax, recurrent. -Patient has history of prior spontaneous pneumothorax in 2022 and 2018. -Chest x-ray showed left apical pneumothorax approximately 30%. Chest tube was placed. -CXR on 05/18 revealed left apical pneumothorax ~10% Plan: -Chest x-ray for 05/19 -Will continue monitoring chest tube and output. -Pain control with acetaminophen and [place]. -General surgeon Dr. Fernandez consulted for chest tube management, we appreciate recommendations, advises daily cxr #Hemoconcentration, resolved #Leukocytosis, resolved #Hypercalcemia. #Hyperbilirubinemia. -Labs on admission showed WBCs 12.4, hemoglobin 16.3, corrected calcium 10.7, total bilirubin 1.7, albumin 5.6. His bilirubin was previously noted to be elevated. -Patient denies any fever, chills, abdominal pain, nausea or vomiting. He reported decreased oral intake prior to admission Possibly hemoconcentration from dehydration. Plan: -Treated with IV NS fluids at 70 FEN: regular. DVT prophylaxis: none. GI prophylaxis: none. Dispo: medsurg, pending general surgery recommendations for chest tube removal, tube currently in place. CODE STATUS: full code. Patient case discussed with attending physician Dr. Lai Zapata, DO PGY-3
[2024-05-19] VITALS (8 sets, daily range): BP systolic 108–141; BP diastolic 59–86; PULSE 44–58; RESP 15–97; TEMP 36.1–36.9; O2SAT 95–99
--- NOTE | 2024-05-19 06:00 | XR_ITS ---
Examination: AP chest single view Technique one AP portable upright chest single view Exam date and time: May 19, 2024 0607 hrs. Indications: SOB this week, spontaneous left pneumothorax, 30% on chest film May 17, 2024, post chest tube placement Findings: Left apical pneumothorax stable at less than 10% Left chest tube stable position Normal heart size Midline mediastinum Lungs are clear Impression: Stable left apical pneumothorax less than 10%
[2024-05-19 06:03] LABS: Basophils % (Auto) 1 % (0-2.5); Eosinophils # (Auto) 0.1 Thou/mm3 (0.0-0.5); Eosinophils % (Auto) 1 % (0-10); Hematocrit 42.6 % (41.0-53.0); Hemoglobin 14.9 g/dL (13.5-16.0); Immature Granulocytes % (Auto) 0 % (0-0); Immature Granulocytes Auto 0.01 Thou/mm3 (0.00-0.00); Lymphocytes # (Auto) 1.2 Thou/mm3 (1.0-4.8); Lymphocytes % (Auto) 21 % (10-50); Mean Corpuscular Hemoglobin 30.5 pg (25.0-35.0); Mean Corpuscular Volume 87 fL (80-100); Monocytes # (Auto) 0.7 Thou/mm3 (0.0-0.8); Monocytes % (Auto) 12 % (0-12); Neutrophils # (Auto) 3.7 Thou/mm3 (1.8-7.7); Neutrophils % (Auto) 65 % (37-80); Nucleated Red Blood Cell % 0 /100 WBC (0); Platelet Count 208 Thou/mm3 (140-440); RDW Standard Deviation 39.1 fL (35.1-43.9); Red Blood Count 4.88 Miln/mm3 (4.50-5.90); White Blood Count 5.7 Thou/mm3 (3.8-10.6)
[2024-05-19 06:28] LABS: Anion Gap 6 (7-16); BUN/Creatinine Ratio 10 Ratio (12-20); Blood Urea Nitrogen 10 mg/dL (9-23); Calcium 10.2 mg/dL (8.3-10.6); Carbon Dioxide 30.3 mMol/L (20.0-31.0); Chloride 104 mMol/L (98-107); Estimated Creatinine Clearance 99.8 mL/min (>60); Glucose 83 mg/dL (74-106); Osmolality,Calculated 277 (275-295); Potassium 3.8 mMol/L (3.4-5.1); Sodium 140 mMol/L (136-145); eGFR > 60 See Note
[2024-05-19] MEDS: HYDROcodone/APAP 5/325 TABLET 1 TAB PO ×2 (09:35→22:15)
--- NOTE | 2024-05-19 12:06 | PD.SURPROG ---
Documentation for date of: 05/19/24 Subjective Subjective Narrative: Patient is seen and examined. He denies chest pain or shortness of breath Exam Vital Signs Temp Pulse Resp BP Pulse Ox O2 Del Method O2 Flow Rate 98.2 F 52 L 18 108/59 L 98 Room Air 3 05/19/24 08:00 05/19/24 10:11 05/19/24 10:11 05/19/24 08:00 05/19/24 08:00 05/19/24 08:00 05/18/24 04:00 Constitutional Constitutional: no acute distress Routine Chest/Breast/Axilla Exam Comments: Chest tube in place and intact without evidence of air leak today Routine Respiratory Exam Respiratory: Present CTA bilaterally Assessment & Plan Assessment Additional comments: Spontaneous pneumothorax status post chest tube placement. Repeat chest x-ray revealed stable small left apical pneumothorax Plan Clamp the NG tube and repeat x-ray in 4 hours. If x-ray reveals stable and unchanged left apical pneumothorax keep chest tube clamped and will repeat x-ray in the morning
--- NOTE | 2024-05-19 14:01 | PC.NURSE ---
RECEIVED ORDER FROM MD, TO CLAMP CHEST TUBE. CHEST TUBE CLAMPED AND CALL LIGHT WITHIN REACH. X-RAY ORDERED AT 1800.
--- NOTE | 2024-05-19 14:13 | ESPR_ITS ---
<Statement entered by Jackelin Hoyt MD - 05/23/24 17:32> Attending attestation: I reviewed above note and agree with findings and plans. I have also personally examined the patient with medicine team and went over assessment and plan with medical team including consultant intern and resident physician. Documentation for date of: 05/19/24 Subjective Subjective Interval history: Patient was seen and examined at bedside. No acute overnight events. Repeat chest x-ray showed 10% pneumothorax. Discussed with . Continue management of his chest tube, will clamp it today and repeat chest x-ray in 4 hours and will likely remove chest tube tomorrow. Will continue current management and monitor patient. Exam Vital Signs Temp Pulse Resp BP Pulse Ox O2 Del Method O2 Flow Rate 98.1 F 50 L 17 129/86 H 98 Room Air 3 05/19/24 12:00 05/19/24 12:00 05/19/24 12:00 05/19/24 12:00 05/19/24 12:00 05/19/24 12:00 05/18/24 04:00 Narrative Exam Gen: Well-developed and well-nourished thin male. HEENT: NCAT, PERRLA, EOMI, MMM, anicteric conjunctivae. CVS: normal S1 and S2. RRR. No M/R/G. Resp: decreased breath sound over left apex. No rhonchi, rales, crackles or wheezing. Chest tube in anterior chest. Abd: soft, non-tender, non-distended. BS+ in all 4 quadrants. MSK: Good ROM in BUE & BLE. No edema or rash. Neuro: CN II-XII grossly intact. Strength 5/5 in BUE & BLE. Alert and oriented x3. Psych: appropriate mood and affect. Objective Labs 05/19/24 04:52 05/19/24 04:52 Labs: Laboratory Results - last 24 hr 05/19/24 04:52 WBC 5.7 RBC 4.88 Hgb 14.9 Hct 42.6 MCV 87 MCH 30.5 MCHC 35.0 RDW Std Deviation 39.1 Plt Count 208 Neut % (Auto) 65 Lymph % (Auto) 21 [place] % (Auto) 12 Eos % (Auto) 1 Baso % (Auto) 1 Neut # (Auto) 3.7 Lymph # (Auto) 1.2 [place] # (Auto) 0.7 Eos # (Auto) 0.1 Baso # (Auto) 0.0 Immature Gran # (Auto) 0.01 H Absolute Nucleated RBC 0.00 Immature Gran % 0 Nucleated RBC % 0 Sodium 140 Potassium 3.8 Chloride 104 Carbon Dioxide 30.3 Anion Gap 6 L BUN 10 Creatinine 1.0 Estim Creat Clear Calc 99.8 eGFR > 60 BUN/Creatinine Ratio 10 L Glucose 83 Calculated Osmolality 277 Calcium 10.2 Quality Measures Quality Measures none Assessment & Plan Assessment Current Active Medications: Generic Name Dose Route Start Last Admin Trade Name Freq PRN Reason Stop Dose Admin Acetaminophen 650 mg 05/17/24 16:40 Acetaminophen 325 Mg Tablet PO 06/16/24 16:39 Q6H PRN PAIN SCALE 1-3 (mild Hydrocodone Bitart/Acetaminophen 1 tab 05/17/24 16:40 05/19/24 09:35 Hydrocodone/Apap 5/325 Tablet PO 05/22/24 16:39 1 tab Q4HR PRN Administration PAIN SCALE 4-6 (Moderate Plan Patient is 24 years old male with past medical history significant of marijuana use disorder presented to the ED complaining of chest pain started yesterday around noon. Patient reported that he was resting on the couch when he suddenly developed severe chest pain over the left chest. Today his condition has failed to improve and he came to the emergency room. Chest x-ray showed left apical pneumothorax approximately 70%. Chest tube was placed. Patient was admitted for further management. #Spontaneous pneumothorax, recurrent. -Patient has history of prior spontaneous pneumothorax in 2022 and 2018. -Chest x-ray showed left apical pneumothorax approximately 30%. Chest tube was placed. -CXR on 05/19 revealed left apical pneumothorax ~10% Plan: -Chest tube clamped at 2 PM, repeat chest x-ray at 1800. -Pain control with acetaminophen and [place]. -General surgeon Dr. Fernandez consulted for chest tube management, we appreciate recommendations, advises daily cxr. #Hemoconcentration, resolved #Leukocytosis, resolved #Hypercalcemia. #Hyperbilirubinemia. -Labs on admission showed WBCs 12.4, hemoglobin 16.3, corrected calcium 10.7, total bilirubin 1.7, albumin 5.6. His bilirubin was previously noted to be elevated. -Patient denies any fever, chills, abdominal pain, nausea or vomiting. He reported decreased oral intake prior to admission Possibly hemoconcentration from dehydration. Plan: -Treated with IV NS fluids at 70. FEN: regular. DVT prophylaxis: none. GI prophylaxis: none. Dispo: medsurg, pending general surgery recommendations for chest tube removal, tube currently clamped. CODE STATUS: full code. Patient case discussed with attending physician Dr. Hoyt. Dwight Hughes MD, PGY 2. Disclaimer: This note was dictated by speech recognition. Minor errors in associate director qa may be present due to voice recognition software.
--- NOTE | 2024-05-19 18:00 | XR_ITS ---
Examination: AP chest single view Technique one AP portable semiupright chest single view Exam date and time: May 19, 2024 1744 hrs. Comparison May 19, 2024 0607 hrs. Indications: History spontaneous pneumothorax May 17, 2024 post chest tube placement Findings: Left apical pneumothorax is increased in size compared to the prior study, current estimate 20% No shift of the heart or mediastinum Chest tube unchanged in position Impression: Left apical pneumothorax is increased in size, current estimate 20%
[2024-05-20] VITALS: BP 120/67; PULSE 58; RESP 18; TEMP 36.4; O2SAT 98
[2024-05-20 04:00] VITALS: BP 126/77; PULSE 52; RESP 15; TEMP 36.4; O2SAT 98
[2024-05-20 06:02] LABS: Basophils % (Auto) 0 % (0-2.5); Eosinophils # (Auto) 0.1 Thou/mm3 (0.0-0.5); Eosinophils % (Auto) 1 % (0-10); Hematocrit 43.6 % (41.0-53.0); Hemoglobin 15.3 g/dL (13.5-16.0); Immature Granulocytes % (Auto) 0 % (0-0); Immature Granulocytes Auto 0.03 Thou/mm3 (0.00-0.00); Lymphocytes # (Auto) 1.1 Thou/mm3 (1.0-4.8); Lymphocytes % (Auto) 15 % (10-50); Mean Corpuscular HGB Conc 35.1 g/dl (31.0-37.0); Mean Corpuscular Hemoglobin 30.1 pg (25.0-35.0); Mean Corpuscular Volume 86 fL (80-100); Monocytes # (Auto) 0.9 Thou/mm3 (0.0-0.8); Monocytes % (Auto) 12 % (0-12); Neutrophils # (Auto) 5.4 Thou/mm3 (1.8-7.7); Neutrophils % (Auto) 71 % (37-80); Nucleated Red Blood Cell % 0 /100 WBC (0); Platelet Count 250 Thou/mm3 (140-440); RDW Standard Deviation 37.6 fL (35.1-43.9); Red Blood Count 5.08 Miln/mm3 (4.50-5.90); White Blood Count 7.5 Thou/mm3 (3.8-10.6)
[2024-05-20 06:54] LABS: Anion Gap 5 (7-16); BUN/Creatinine Ratio 11 Ratio (12-20); Blood Urea Nitrogen 11 mg/dL (9-23); Calcium 10.3 mg/dL (8.3-10.6); Carbon Dioxide 29.6 mMol/L (20.0-31.0); Chloride 104 mMol/L (98-107); Estimated Creatinine Clearance 99.8 mL/min (>60); Glucose 88 mg/dL (74-106); Osmolality,Calculated 275 (275-295); Potassium 3.5 mMol/L (3.4-5.1); Sodium 139 mMol/L (136-145); eGFR > 60 See Note
--- NOTE | 2024-05-20 07:00 | XR_ITS ---
Examination: AP chest single view Technique one AP portable upright chest single view Exam date and time: May 20, 2024 0713 hrs. Indications: History spontaneous pneumothorax May 17, 2024, post chest tube placement Findings: There remains left apical pneumothorax estimated 15-20% Chest tube in unchanged position lower left hemithorax Normal heart size No shift of the trachea or mediastinum to the right Impression: There remains left apical pneumothorax estimated 15-20%
[2024-05-20 07:42] VITALS: BP 111/69; PULSE 53; RESP 16; TEMP 36.7; O2SAT 96
--- NOTE | 2024-05-20 08:15 | PD.SURPROG ---
Documentation for date of: 05/20/24 Subjective Subjective Narrative: Patient is seen and examined. He is resting comfortably. Yesterday after clamping his chest tube his pneumothorax increased from 10 to 20%. The chest tube was placed back to suction, x-ray this morning shows 20% pneumothorax Exam Vital Signs Temp Pulse Resp BP Pulse Ox O2 Del Method O2 Flow Rate 98.1 F 53 L 16 111/69 96 Room Air 3 05/20/24 07:42 05/20/24 07:42 05/20/24 07:42 05/20/24 07:42 05/20/24 07:42 05/20/24 07:42 05/20/24 00:00 Constitutional Constitutional: no acute distress Routine Chest/Breast/Axilla Exam Comments: Chest tube in place and intact, no obvious air leak at this time Assessment & Plan Assessment Additional comments: Recurrent pneumothorax status post chest tube placement Plan Will keep chest tube to suction start patient on oxygen supplement
--- NOTE | 2024-05-20 08:20 | PC.NURSE ---
per Dr. Fernandez, placed pt on 5L [place], o2 sat at 100%, pt tolerating well.
[2024-05-20] MEDS: HYDROcodone/APAP 5/325 TABLET 1 TAB PO ×2 (08:57→20:42)
[2024-05-20 11:32] VITALS: BP 124/76; PULSE 55; RESP 17; TEMP 37.1; O2SAT 97
--- NOTE | 2024-05-20 14:43 | ESPR_ITS ---
<Statement entered by Jackelin Hoyt MD - 05/23/24 17:38> Attending attestation: I reviewed above note and agree with findings and plans. I have also personally examined the patient with medicine team and went over assessment and plan with medical team including finance intern and resident physician. Documentation for date of: 05/20/24 Subjective Subjective Interval history: Patient was seen and examined at bedside. No acute overnight events. Yesterday evening chest tube was clamped, repeat chest x-ray showed increased pneumothorax to 20%, suction was resumed and patient was started on oxygen supplement therapy. Repeat chest x-ray today morning showed pneumothorax 15 to 20%. Will continue current management and monitor patient, repeat chest x-ray in the morning. Exam Vital Signs Temp Pulse Resp BP Pulse Ox O2 Del Method O2 Flow Rate 98.7 F 55 L 17 124/76 97 Nasal Cannula 5 05/20/24 11:32 05/20/24 11:32 05/20/24 11:32 05/20/24 11:32 05/20/24 11:32 05/20/24 11:32 05/20/24 11:32 Narrative Exam Gen: Well-developed and well-nourished thin male. HEENT: NCAT, PERRLA, EOMI, MMM, anicteric conjunctivae. CVS: normal S1 and S2. RRR. No M/R/G. Resp: decreased breath sound over left apex. No rhonchi, rales, crackles or wheezing. Chest tube in anterior chest. Abd: soft, non-tender, non-distended. BS+ in all 4 quadrants. MSK: Good ROM in BUE & BLE. No edema or rash. Neuro: CN II-XII grossly intact. Strength 5/5 in BUE & BLE. Alert and oriented x3. Psych: appropriate mood and affect. Objective Labs 05/20/24 04:43 05/20/24 04:43 Labs: Laboratory Results - last 24 hr 05/20/24 04:43 WBC 7.5 RBC 5.08 Hgb 15.3 Hct 43.6 MCV 86 MCH 30.1 MCHC 35.1 RDW Std Deviation 37.6 Plt Count 250 D Neut % (Auto) 71 Lymph % (Auto) 15 [place] % (Auto) 12 Eos % (Auto) 1 Baso % (Auto) 0 Neut # (Auto) 5.4 Lymph # (Auto) 1.1 [place] # (Auto) 0.9 H Eos # (Auto) 0.1 Baso # (Auto) 0.0 Immature Gran # (Auto) 0.03 H Absolute Nucleated RBC 0.00 Immature Gran % 0 Nucleated RBC % 0 Sodium 139 Potassium 3.5 Chloride 104 Carbon Dioxide 29.6 Anion Gap 5 L BUN 11 Creatinine 1.0 Estim Creat Clear Calc 99.8 eGFR > 60 BUN/Creatinine Ratio 11 L Glucose 88 Calculated Osmolality 275 Calcium 10.3 Quality Measures Quality Measures VTE prophylaxis Assessment & Plan Assessment Current Active Medications: Generic Name Dose Route Start Last Admin Trade Name Freq PRN Reason Stop Dose Admin Acetaminophen 650 mg 05/17/24 16:40 Acetaminophen 325 Mg Tablet PO 06/16/24 16:39 Q6H PRN PAIN SCALE 1-3 (mild Hydrocodone Bitart/Acetaminophen 1 tab 05/17/24 16:40 05/20/24 08:57 Hydrocodone/Apap 5/325 Tablet PO 05/22/24 16:39 1 tab Q4HR PRN Administration PAIN SCALE 4-6 (Moderate Plan Patient is 24 years old male with past medical history significant of marijuana use disorder presented to the ED complaining of chest pain started yesterday around noon. Patient reported that he was resting on the couch when he suddenly developed severe chest pain over the left chest. Today his condition has failed to improve and he came to the emergency room. Chest x-ray showed left apical pneumothorax approximately 70%. Chest tube was placed. Patient was admitted for further management. #Spontaneous pneumothorax, recurrent, s/p chest tube placement. -Patient has history of prior spontaneous pneumothorax in 2022 and 2018. -Chest x-ray showed left apical pneumothorax approximately 30%. Chest tube was placed. -CXR on 05/19 revealed left apical pneumothorax ~10% Plan: -Continue chest tube on suction mode. -Follow-up chest x-ray in the morning. -Started on oxygen supplement. -Pain control with acetaminophen and [place]. -General surgeon Dr. Fernandez consulted for chest tube management, we appreciate recommendations, advises daily cxr. #Hemoconcentration, resolved #Leukocytosis, resolved #Hypercalcemia. #Hyperbilirubinemia. -Labs on admission showed WBCs 12.4, hemoglobin 16.3, corrected calcium 10.7, total bilirubin 1.7, albumin 5.6. His bilirubin was previously noted to be elevated. -Patient denies any fever, chills, abdominal pain, nausea or vomiting. He reported decreased oral intake prior to admission Possibly hemoconcentration from dehydration. Plan: -Treated with IV NS fluids at 70. FEN: regular. DVT prophylaxis: none. GI prophylaxis: none. Dispo: medsurg, pending general surgery recommendations for chest tube removal, tube currently clamped. CODE STATUS: full code. Patient case discussed with attending physician Dr. Hoyt. Dwight Hughes MD, PGY 2. Disclaimer: This note was dictated by speech recognition. Minor errors in industrial waste inspector may be present due to voice recognition software.
[2024-05-20 16:00] VITALS: BP 124/66; PULSE 55; RESP 17; TEMP 36.9; O2SAT 100
[2024-05-20] MEDS: ACETAMINOPHEN 325 MG TABLET 650 MG PO (16:56)
[2024-05-20 20:00] VITALS: BP 131/81; PULSE 50; RESP 20; TEMP 36.4; O2SAT 100
[2024-05-20] MEDS: MELATONIN 3 MG TABLET PO (20:42)
[2024-05-21] VITALS: BP 124/70; PULSE 52; RESP 20; TEMP 36.4; O2SAT 100
[2024-05-21 04:00] VITALS: BP 134/84; PULSE 50; RESP 20; TEMP 36.4; O2SAT 98
[2024-05-21 05:57] LABS: Basophils % (Auto) 0 % (0-2.5); Eosinophils # (Auto) 0.1 Thou/mm3 (0.0-0.5); Eosinophils % (Auto) 1 % (0-10); Hematocrit 42.9 % (41.0-53.0); Hemoglobin 15.4 g/dL (13.5-16.0); Immature Granulocytes % (Auto) 0 % (0-0); Immature Granulocytes Auto 0.01 Thou/mm3 (0.00-0.00); Lymphocytes % (Auto) 15 % (10-50); Mean Corpuscular HGB Conc 35.9 g/dl (31.0-37.0); Mean Corpuscular Hemoglobin 30.1 pg (25.0-35.0); Mean Corpuscular Volume 84 fL (80-100); Monocytes # (Auto) 0.9 Thou/mm3 (0.0-0.8); Monocytes % (Auto) 13 % (0-12); Neutrophils # (Auto) 4.8 Thou/mm3 (1.8-7.7); Neutrophils % (Auto) 70 % (37-80); Nucleated Red Blood Cell % 0 /100 WBC (0); Platelet Count 229 Thou/mm3 (140-440); Red Blood Count 5.11 Miln/mm3 (4.50-5.90); White Blood Count 6.9 Thou/mm3 (3.8-10.6)
[2024-05-21 06:26] LABS: Anion Gap 6 (7-16); BUN/Creatinine Ratio 14 Ratio (12-20); Blood Urea Nitrogen 14 mg/dL (9-23); Calcium 10.3 mg/dL (8.3-10.6); Carbon Dioxide 29.8 mMol/L (20.0-31.0); Chloride 102 mMol/L (98-107); Estimated Creatinine Clearance 99.8 mL/min (>60); Glucose 91 mg/dL (74-106); Osmolality,Calculated 276 (275-295); Sodium 138 mMol/L (136-145); eGFR > 60 See Note
--- NOTE | 2024-05-21 07:00 | XR_ITS ---
Examination: AP chest single view Technique: Portable AP sitting chest single view Exam date and time: May 21, 2024 at 0723 hrs. Comparison May 20, 2024 Indications: History spontaneous left pneumothorax May 17, 2024, post chest tube placement Findings: The left apical pneumothorax has increased in size, current estimated 30% Chest tube is in satisfactory position Normal heart size Right lung clear Impression: Left apical pneumothorax has increased in size, current estimated 30%
[2024-05-21 08:00] VITALS: BP 117/72; PULSE 54; RESP 18; TEMP 36.2; O2SAT 99
--- NOTE | 2024-05-21 11:10 | PD.SURPROG ---
Documentation for date of: 05/21/24 Subjective Subjective Narrative: Patient is seen and examined. He is resting comfortably, denies shortness of breath or any chest pain. His x-ray this morning revealed increased pneumothorax with 30% Exam Vital Signs Temp Pulse Resp BP Pulse Ox O2 Del Method O2 Flow Rate 97.2 F 54 L 18 117/72 99 Nasal Cannula 5 05/21/24 08:00 05/21/24 08:00 05/21/24 08:00 05/21/24 08:00 05/21/24 08:00 05/21/24 08:00 05/21/24 08:00 Constitutional Constitutional: no acute distress Routine Chest/Breast/Axilla Exam Comments: Chest tube is in place and intact no obvious air leak Assessment & Plan Diagnosis (1) Pneumothorax on left: Status: Acute Plan I had a lengthy discussion with the patient and his family and explained to them that his pneumothorax is getting worse and he was requiring an additional chest tube. I was prepared to place a Cook chest tube at his bedside, however he is refusing chest tube placement on his bedside and he wishes to be sedated during the procedure. Will consult chest tube placement under sedation by IR. In the meantime I was informed that the patient is in the process of being transferred to another institution with thoracic surgeon for possible VATS.
[2024-05-21 12:00] VITALS: BP 136/96; PULSE 77; RESP 18; TEMP 36.9; O2SAT 99
--- NOTE | 2024-05-21 12:55 | PC.NURSE ---
per Kathie MCELROY from phlebotomist lab assistant, Dr. Shankar is recommending pt to have chest tube insertion done by a surgeon, Dr. Hughes notified
--- NOTE | 2024-05-21 12:57 | PC.NURSE ---
Per Dr. Sears will not proceed with chest tube insertion, recommending a Surgeon to insert chest tube.
--- NOTE | 2024-05-21 14:56 | ESDS_ITS ---
<Statement entered by Jackelin Hoyt MD - 05/23/24 17:39> Attending attestation: I reviewed above note and agree with findings and plans. I have also personally examined the patient with medicine team and went over assessment and plan with medical team including rn internship and resident physician. Planned Discharge Date 05/21/24 DS: Providers Provider Date of admission: 05/17/24 16:40 Primary care physician: Physician No Primary/Family Admitting Provider: Jackelin Hoyt MD Attending Provider on Admission: Jackelin Hoyt MD Consults: 05/18/24 12:44 Consult to General Surgery Urgent Comment: Chest tube farm management supervisor Provider: Cat Fernandez Attending Provider on DC: Maria Alejandra Duffy MD Discharging Provider: Maria Alejandra Duffy MD DS: Diagnosis Problem List Completed Was Problem List Reviewed/Reconciled?: Yes Hospital Course Hospital Course Hospital course: Mr. Montes is a 24-year-old male with past medical history significant of prior spontaneous pneumo thorax presented to [facility] ED complaining of left sided chest pain. Chest x-ray showed left apical pneumothorax approximately 30%, chest tube was placed. EKG showed sinus bradycardia with nonspecific ST segment changes. Repeat chest x-ray showed improvement of pneumothorax to 10%. Per surgery recommendation Dr. Fernandez recommended to clamp the chest tube and repeat chest x-rays in 4 hours to evaluate if the chest tube can be safely removed without consequential pneumothorax. Repeat chest x-ray after clamping showed worsening pneumothorax to approximately 20%, decision to not remove the chest tube was made with continuous monitoring of output. Repeat chest x-rays on May 21, 2024 revealed increasing pneumothorax to 30%. At this point decision was made to consult cardiothoracic surgeon for possible transfer for further management of recurrent pneumothorax status post chest tube. #Spontaneous pneumothorax, recurrent #Hemoconcentration, resolved #Leukocytosis, resolved #Hypercalcemia, resovled #Hyperbilirubinemia, resolved Assessment and plan discussed with my senior resident Dr. Sharif & attending physician Dr. Lai Duffy (PGY-1)- Internal medicine resident Time Spent with Patient Time attestation: Total time spent providing and/or coordinating discharge services: Exam Vital Signs Temp Pulse Resp BP Pulse Ox O2 Del Method O2 Flow Rate 98.4 F 77 18 136/96 H 99 Nasal Cannula 5 05/21/24 12:00 05/21/24 12:00 05/21/24 12:00 05/21/24 12:00 05/21/24 12:00 05/21/24 12:00 05/21/24 12:00 Discharge Plan Plan Patient Disposition: Xfer Other Facility Pt Being Transferred to: [facility] Service Needed for Transfer: Cardiovascular/Thoracic Surg Prescriptions/Referrals Prescriptions/Med Rec: No Action No Known Home Medications Referrals: No Primary/Family,Physician [Primary Care Provider] - Patient/Caregiver Discharge Instructions Print Language: Canadian Stand Alone Forms: Gudelia Award Info., Patient Portal Info Letter Discharge Order Discharge Orders: Discharge (Routine); Ordered 05/21/24 Ordered By: Dwight Hughes Quality Discharge Quality Measures none
[2024-05-21 16:00] VITALS: BP 104/61; PULSE 55; RESP 17; TEMP 36.6; O2SAT 97
[2024-05-21 20:00] VITALS: BP 126/78; PULSE 49; RESP 18; TEMP 36.2; O2SAT 97
[2024-05-21] MEDS: HYDROcodone/APAP 5/325 TABLET 1 TAB PO (20:41)
[2024-05-21] MEDS: MELATONIN 3 MG TABLET PO (20:41)
[2024-05-22] VITALS: BP 129/80; PULSE 46; RESP 19; TEMP 36; O2SAT 99
[2024-05-22 04:00] VITALS: BP 131/82; PULSE 45; RESP 18; TEMP 36.5; O2SAT 99
[2024-05-22 05:26] LABS: Basophils % (Auto) 0 % (0-2.5); Eosinophils # (Auto) 0.1 Thou/mm3 (0.0-0.5); Eosinophils % (Auto) 1 % (0-10); Hematocrit 43.7 % (41.0-53.0); Hemoglobin 15.7 g/dL (13.5-16.0); Immature Granulocytes % (Auto) 0 % (0-0); Immature Granulocytes Auto 0.02 Thou/mm3 (0.00-0.00); Lymphocytes # (Auto) 1.1 Thou/mm3 (1.0-4.8); Lymphocytes % (Auto) 14 % (10-50); Mean Corpuscular HGB Conc 35.9 g/dl (31.0-37.0); Mean Corpuscular Hemoglobin 30.2 pg (25.0-35.0); Mean Corpuscular Volume 84 fL (80-100); Monocytes % (Auto) 13 % (0-12); Neutrophils # (Auto) 5.7 Thou/mm3 (1.8-7.7); Neutrophils % (Auto) 71 % (37-80); Nucleated Red Blood Cell % 0 /100 WBC (0); Platelet Count 253 Thou/mm3 (140-440); RDW Standard Deviation 36.7 fL (35.1-43.9); White Blood Count 7.9 Thou/mm3 (3.8-10.6)
[2024-05-22 06:52] LABS: Alanine Aminotransferase < 7 U/L (10-49); Albumin, Serum 5.2 gm/dL (3.5-5.0); Albumin/Globulin Ratio 2.2 (1.2-2.2); Alkaline Phosphatase 56 U/L (46-116); Anion Gap 5 (7-16); Aspartate Amino Transferase 12 U/L (0-34); BUN/Creatinine Ratio 13 Ratio (12-20); Bilirubin,Total 1.9 mg/dL (0.3-1.2); Blood Urea Nitrogen 13 mg/dL (9-23); Calcium 10.6 mg/dL (8.3-10.6); Calcium (Corrected) 10.6 mg/dL (8.5-10.1); Carbon Dioxide 28.7 mMol/L (20.0-31.0); Chloride 103 mMol/L (98-107); Estimated Creatinine Clearance 99.8 mL/min (>60); Globulin 2.4 gm/dL (2.3-3.5); Glucose 85 mg/dL (74-106); Osmolality,Calculated 272 (275-295); Potassium 4.1 mMol/L (3.4-5.1); Sodium 137 mMol/L (136-145); Total Protein 7.6 gm/dL (5.7-8.2); eGFR > 60 See Note
--- NOTE | 2024-05-22 07:33 | XR_ITS ---
Examination: AP chest single view Technique one AP portable upright chest single view Exam date and time: May 22, 2024 at 0819 hours INDICATIONS: History spontaneous pneumothorax last week post chest tube placement FINDINGS: Increasing left apical lateral pneumothorax, currently 40% Trachea is minimally shifted to the right Normal heart size IMPRESSION: Increasing left apical lateral pneumothorax, currently 40%
[2024-05-22 08:00] VITALS: BP 106/62; PULSE 73; RESP 18; TEMP 37; O2SAT 100
--- NOTE | 2024-05-22 08:32 | PC.CM ---
Addendum entered by Dayanara Reddy RN 05/22/24 17:05: Patient has been accepted by [facility] with Dr. Ku. Patient will be going to room 3321 Number to call and give report will be [phone]. Packet completed and given to bedside nurse. I reported off bedside nurse. I called and set up transport and quill picking machine operator time to transfer to [facility] is 1900. I let [facility] know that patient will be picked up time will be 1900. I received authorization to transfer patient from [facility]. She states as long as patient is a higher level transfer they are fine with sending patient to [place]. I let Shayna know that [facility] gave auth. Addendum entered by Dayanara Reddy RN 05/22/24 12:43: I called Les /[facility] and left a message with Sarita [phone]. I let her know we need authorization to send patient to [place] with Dr. Giovanna Garnica. Addendum entered by Dayanara Reddy RN 05/22/24 12:28: I received a call from Shayna at [facility] and she states Dr. Giovanna Garnica is willing to accept patient at [facility] address [address] [place] [address] if we can get authorization for transfer from patient's insurance. I will reach out to insurance at this time. Addendum entered by Dayanara Reddy RN 05/22/24 10:24: I received a call from Shayna at [facility]. She verified she received all my paperwork and images that were pushed over. She was going to reach out to Dr. Hoyt. Original Note: 78 I called [facility] and I initiated a transfer. I faxed over information and I pushed over images. Packet started and CD made.
[2024-05-22 12:00] VITALS: BP 128/84; PULSE 62; RESP 18; TEMP 36.8; O2SAT 100
--- NOTE | 2024-05-22 15:36 | ESPR_ITS ---
<Statement entered by Jackelin Hoyt MD - 06/02/24 16:28> I reviewed above note and agree with findings and plans. I have also personally examined the patient with medicine team and went over assessment and plan with medical team including transportation logistics internship and resident physician. Documentation for date of: 05/22/24 Subjective Subjective Interval history: 05/22: No overnight events patient is seen and examined at bedside. Patient denies any chest pain , continues to have minimal output from the chest tube drainage. Patient denies any chest pain or shortness of breath. Plan to transfer patient yesterday was delayed and another attempt to transfer patient was made today . Repeat chest x-ray this morning showed worsening pneumothorax to 40% . Patient feels frustrated because he wants to finally get surgery. Currently patient is on supplemental oxygen via nasal cannula. Patient has no other complaints . Exam Vital Signs Temp Pulse Resp BP Pulse Ox O2 Del Method O2 Flow Rate 98.2 F 62 18 128/84 100 Nasal Cannula 5 05/22/24 12:00 05/22/24 12:00 05/22/24 12:00 05/22/24 12:00 05/22/24 12:00 05/22/24 12:00 05/22/24 12:00 Narrative Exam Gen: Well-developed and well-nourished thin male. HEENT: NCAT, PERRLA, EOMI, MMM, anicteric conjunctivae. CVS: normal S1 and S2. RRR. No M/R/G. Resp: decreased breath sound over left apex. No rhonchi, rales, crackles or wheezing. Chest tube in anterior chest. Abd: soft, non-tender, non-distended. BS+ in all 4 quadrants. MSK: Good ROM in BUE & BLE. No edema or rash. Neuro: CN II-XII grossly intact. Strength 5/5 in BUE & BLE. Alert and oriented x3. Psych: appropriate mood and affect. Objective Labs 05/22/24 04:37 05/22/24 04:37 Labs: Laboratory Results - last 24 hr 05/22/24 04:37 WBC 7.9 RBC 5.20 Hgb 15.7 Hct 43.7 MCV 84 MCH 30.2 MCHC 35.9 RDW Std Deviation 36.7 Plt Count 253 Neut % (Auto) 71 Lymph % (Auto) 14 [place] % (Auto) 13 H Eos % (Auto) 1 Baso % (Auto) 0 Neut # (Auto) 5.7 Lymph # (Auto) 1.1 [place] # (Auto) 1.0 H Eos # (Auto) 0.1 Baso # (Auto) 0.0 Immature Gran # (Auto) 0.02 H Absolute Nucleated RBC 0.00 Immature Gran % 0 Nucleated RBC % 0 Sodium 137 Potassium 4.1 Chloride 103 Carbon Dioxide 28.7 Anion Gap 5 L BUN 13 Creatinine 1.0 Estim Creat Clear Calc 99.8 eGFR > 60 BUN/Creatinine Ratio 13 Glucose 85 Calculated Osmolality 272 L Calcium 10.6 Corrected Calcium 10.6 H Total Bilirubin 1.9 H AST 12 ALT < 7 L Alkaline Phosphatase 56 Total Protein 7.6 Albumin 5.2 H Globulin 2.4 Albumin/Globulin Ratio 2.2 Quality Measures Quality Measures none Assessment & Plan Assessment Current Active Medications: Generic Name Dose Route Start Last Admin Trade Name Freq PRN Reason Stop Dose Admin Acetaminophen 650 mg 05/17/24 16:40 05/20/24 16:56 Acetaminophen 325 Mg Tablet PO 06/16/24 16:39 650 mg Q6H PRN Administration PAIN SCALE 1-3 (mild Hydrocodone Bitart/Acetaminophen 1 tab 05/17/24 16:40 05/21/24 20:41 Hydrocodone/Apap 5/325 Tablet PO 05/22/24 16:39 1 tab Q4HR PRN Administration PAIN SCALE 4-6 (Moderate Melatonin 3 mg 05/20/24 21:00 05/21/24 20:41 Melatonin 3 Mg Tablet PO 06/19/24 20:59 3 mg HS NEELA Administration Plan Patient is 24 years old male with past medical history significant of marijuana use disorder presented to the ED complaining of chest pain started yesterday around noon. Patient reported that he was resting on the couch when he suddenly developed severe chest pain over the left chest. Today his condition has failed to improve and he came to the emergency room. Chest x-ray showed left apical pneumothorax approximately 70%. Chest tube was placed. Patient was admitted for further management. #Spontaneous pneumothorax, recurrent, s/p chest tube placement. -Patient has history of prior spontaneous pneumothorax in 2022 and 2018. -Chest x-ray 05/22 showed left apical pneumothorax approximately 40%. -CXR on 05/19 revealed left apical pneumothorax ~10% Plan: -Continue chest tube on suction mode. -Follow-up chest x-ray in the morning. -Started on oxygen supplement. -Pain control with acetaminophen and [place]. -General surgeon Dr. Fernandez consulted for chest tube management, we appreciate recommendations, advises daily cxr. #Hemoconcentration, resolved #Leukocytosis, resolved #Hypercalcemia. #Hyperbilirubinemia. -Labs on admission showed WBCs 12.4, hemoglobin 16.3, corrected calcium 10.7, total bilirubin 1.7, albumin 5.6. His bilirubin was previously noted to be elevated. -Patient denies any fever, chills, abdominal pain, nausea or vomiting. He reported decreased oral intake prior to admission Possibly hemoconcentration from dehydration. Plan: -Treated with IV NS fluids at 70. FEN: regular. DVT prophylaxis: none. GI prophylaxis: none. Dispo: medsurg, pending general surgery recommendations for chest tube removal, tube currently clamped. CODE STATUS: full code. Assessment and plan discussed with my senior resident Dr. Hughes & attending physician Dr. Lai Duffy (PGY-1)- Internal medicine resident
--- NOTE | 2024-05-22 15:40 | ESDS_ITS ---
<Statement entered by Jackelin Hoyt MD - 06/02/24 16:28> I reviewed above note and agree with findings and plans. I have also personally examined the patient with medicine team and went over assessment and plan with medical team including multicultural internship and resident physician. Planned Discharge Date 05/22/24 DS: Providers Provider Date of admission: 05/17/24 16:40 Primary care physician: Physician No Primary/Family Admitting Provider: Jackelin Hoyt MD Attending Provider on Admission: Jackelin Hoyt MD Consults: 05/18/24 12:44 Consult to General Surgery Urgent Comment: Chest tube service delivery management consultant Provider: Cat Fernandez Attending Provider on DC: Maria Alejandra Duffy MD Discharging Provider: Maria Alejandra Duffy MD DS: Diagnosis Problem List Completed Was Problem List Reviewed/Reconciled?: Yes Hospital Course Hospital Course Hospital course: Mr. Montes is a 24-year-old male with past medical history significant of prior spontaneous pneumo thorax presented to [facility] ED complaining of left sided chest pain. Chest x-ray showed left apical pneumothorax approximately 30%, chest tube was placed. EKG showed sinus bradycardia with nonspecific ST segment changes. Repeat chest x-ray showed improvement of pneumothorax to 10%. Per surgery recommendation Dr. Fernandez recommended to clamp the chest tube and repeat chest x-rays in 4 hours to evaluate if the chest tube can be safely removed without consequential pneumothorax. Repeat chest x-ray after clamping showed worsening pneumothorax to approximately 20%, decision to not remove the chest tube was made with continuous monitoring of output. Repeat chest x-rays on May 21, 2024 revealed increasing pneumothorax to 30%. Repeat chest x-ray from 05/22/2024 findings were consistent with worsening pneumothorax to 40%, . at this point decision was made to consult cardiothoracic surgeon for possible transfer for further management of recurrent pneumothorax status post chest tube. #Spontaneous pneumothorax, recurrent #Hemoconcentration, resolved #Leukocytosis, resolved #Hypercalcemia, resovled #Hyperbilirubinemia, resolved Assessment and plan discussed with my senior resident Dr. Sharif & attending physician Dr. Lai Duffy (PGY-1)- Internal medicine resident Time Spent with Patient Time attestation: Total time spent providing and/or coordinating discharge services: Exam Vital Signs Temp Pulse Resp BP Pulse Ox O2 Del Method O2 Flow Rate 98.2 F 62 18 128/84 100 Nasal Cannula 5 05/22/24 12:00 05/22/24 12:00 05/22/24 12:00 05/22/24 12:00 05/22/24 12:00 05/22/24 12:00 05/22/24 12:00 Narrative Exam Gen: Well-developed and well-nourished thin male. HEENT: NCAT, PERRLA, EOMI, MMM, anicteric conjunctivae. CVS: normal S1 and S2. RRR. No M/R/G. Resp: decreased breath sound over left apex. No rhonchi, rales, crackles or wheezing. Chest tube in anterior chest. Abd: soft, non-tender, non-distended. BS+ in all 4 quadrants. MSK: Good ROM in BUE & BLE. No edema or rash. Neuro: CN II-XII grossly intact. Strength 5/5 in BUE & BLE. Alert and oriented x3. Psych: appropriate mood and affect. Discharge Plan Plan Patient Disposition: Xfer Other Facility Pt Being Transferred to: [facility] Service Needed for Transfer: Cardiovascular/Thoracic Surg Prescriptions/Referrals Prescriptions/Med Rec: No Action No Known Home Medications Referrals: No Primary/Family,Physician [Primary Care Provider] - Patient/Caregiver Discharge Instructions Print Language: Kiswahili Stand Alone Forms: Gudelia Award Info., Patient Portal Info Letter Discharge Order Discharge Orders: Discharge (Routine); Ordered 05/22/24 Ordered By: Dwight Hughes Quality Discharge Quality Measures none
[2024-05-22 15:44] VITALS: BMI 18.8
[2024-05-22 16:00] VITALS: BP 133/76; PULSE 66; RESP 18; TEMP 36.8; O2SAT 100
--- NOTE | 2024-05-22 18:22 | PC.NURSE ---
Called LILIBETH Hernandez at [facility] [phone] and gave report on pt. Notified transfer is set up for 190.
[2024-05-22 19:20] VITALS: BP 130/83; PULSE 55; RESP 16; TEMP 36.7; O2SAT 99
--- NOTE | 2024-05-22 19:33 | PC.NURSE ---
Called Raisa HARKINS from [facility] and confirmed pt transfer. Instuction was given to have pt go to ED first then to an assigned room 3321. Also made aware that chest tube will be clamped upon transfer and was ok with the receiving RN as per Kailee MCELROY. Pt left the floor via ambulance with all belongings.
== END 2024-05-22 19:35 | disposition short-term general hospital (02) | DRG 143 ==
LOC: SERX 16:05 → SERHOLD 16:52 → S3SX 19:39
PROVIDERS: Student in an Organized Health Care Education/Training Program; Admitting Provider Internal Medicine; Emergency Provider Emergency Medicine; Visit Provider Internal Medicine
DX: J93.83 Other pneumothorax (principal); E83.52 Hypercalcemia; R17 Unspecified jaundice; E86.0 Dehydration; R00.1 Bradycardia, unspecified; D72.829 Elevated white blood cell count, unspecified; F12.90 Cannabis use, unspecified, uncomplicated; F17.210 Nicotine dependence, cigarettes, uncomplicated
CPT/HCPCS: 36415; 71045; 71046; 77012; 80048; 80053; 85025; 85610; 85730; 93005; 99291; J3010; J3490; J7030; J7040; A9270